=== PATIENT | male | born 1960 | race Caucasian/White ===

== ENCOUNTER 2020-07-17 08:05 | Day surgery (SDC) | payer MEDICARE, MEDICAID ==
[2020-07-17] MEDS ORDERED: Propofol 200 MG/20 ML SDV IV ONE (08:06)
[2020-07-17] MEDS ORDERED: Ondansetron 4 MG/2 ML SDV IVPUSH ONE (08:06)
[2020-07-17] MEDS ORDERED: Midazolam 1 MG/ML 2 ML SDV IV ONE (08:06)
[2020-07-17] MEDS ORDERED: fentaNYL 100 MCG/2 ML SDV IV ONE (08:06)
[2020-07-17] MEDS ORDERED: Ketorolac 30 MG/ML SDV IVPUSH ONE (08:06)
[2020-07-17] MEDS ORDERED: Sodium Chloride 0.9% 10 ML Syringe FLUSH PRN (08:15)
[2020-07-17] MEDS ORDERED: Lactated Ringers 1,000 ML IV SCH (08:15)
--- NOTE | 2020-07-17 10:25 | PCM.OPNOTE ---
- General Post-Op/Procedure Note Date of Surgery/Procedure: 07/17/20 Operative Procedure(s): excision of abd wall lipoma Findings: 8x6x1 cm lipoma Pre Op Diagnosis: abd wall lipoma Post-Op Diagnosis: Same Anesthesia Technique: Local (7 ml 1% lido with epi/0.5% buvipicaine), MAC Primary Surgeon: Nixon Alonso Anesthesia Provider: Gerardo Moser Pathology: 8x6x1 cm lipoma EBL in mLs: 1 Complications: None Condition: Good Free Text/Narrative:: see dictation
--- NOTE | 2020-07-17 13:35 | OR ---
DATE OF OPERATION: 07/17/2020 SURGEON: Nixon Alonso MD PROCEDURE PERFORMED: Excision of abdominal wall lipoma. PREOPERATIVE DIAGNOSIS: Abdominal wall mass/lipoma. POSTOPERATIVE DIAGNOSIS: Abdominal wall mass/lipoma. INDICATIONS FOR PROCEDURE: A 59-year-old white male, referred with a visible lump on the left upper quadrant of his abdominal wall. Subsequent workup revealed it to be a lipoma. Due to the size, which clinically measured approximately 7 cm in diameter, excisional biopsy was recommended. DESCRIPTION OF OPERATION: After an excellent IV sedation was administered, the patient was prepped and draped in usual sterile manner. 7 mL of 1:1 mixture of 1% lidocaine with epinephrine and 0.5% bupivacaine was used to infiltrate the planned incision site over the mass, as well as create a field block around the lipoma. An incision was made with a #15 scalpel blade. The lipoma itself was excised using careful blunt dissection. The specimen was passed off the field, it measured 8 x 6 x 1 cm in size. The area was irrigated. After ensuring excellent hemostasis, the wound was closed with a running subcu 3-0 Vicryl. Steri-Strips and dressing were applied. The patient tolerated the procedure well, was taken to Recovery in good condition. /[id number] /MODL
== END 2020-07-17 10:43 | disposition home or self-care (01) ==
LOC: FB.SDS 08:05
PROVIDERS: ATTEND Surgery
DX: D17.1 Benign lipomatous neoplasm of skin and subcutaneous tissue of trunk (principal); E11.9 Type 2 diabetes mellitus without complications; F41.1 Generalized anxiety disorder; I10 Essential (primary) hypertension; J45.909 Unspecified asthma, uncomplicated; Z79.899 Other long term (current) drug therapy; Z90.49 Acquired absence of other specified parts of digestive tract; Z79.84 Long term (current) use of oral hypoglycemic drugs; Z88.1 Allergy status to other antibiotic agents; Z88.8 Allergy status to other drugs, medicaments and biological substances
CPT/HCPCS: 00790; 22903; 82962; 88304; J1885; J2250; J2405; J2704; J3010; J7120

== ENCOUNTER 2020-11-11 11:10 | Emergency (ER) | payer MEDICARE, MEDICAID ==
[2020-11-11] MEDS ORDERED: Alum Hydroxide/Mag Hydroxide 30 ML, Lidocaine 2% 15 ML PO ONE ×2 (11:41)
[2020-11-11] MEDS ORDERED: Ondansetron 4 MG/2 ML SDV IVPUSH ONE (11:41)
[2020-11-11] MEDS ORDERED: Ketorolac 30 MG/ML SDV IVPUSH ONE (11:41)
[2020-11-11] MEDS ORDERED: Pantoprazole 40 MG Vial IVPUSH ONE (11:42)
[2020-11-11] MEDS ORDERED: Sodium Chloride 0.9% 1,000 ML IV SCH (11:45)
--- NOTE | 2020-11-11 12:05 | EDM.PDOC ---
ED HPI GENERAL MEDICAL PROBLEM - General Chief Complaint: Gastrointestinal Problem Stated Complaint: NAUS Time Seen by Provider: 11/11/20 11:20 Source of Information: Reports: Patient History Limitations: Reports: No Limitations - History of Present Illness INITIAL COMMENTS - FREE TEXT/NARRATIVE: c/o diarrhea pt states he has had 4-5 loose stools x 2w, had 2 last night and 3 since getting up at 7a says he has not been able to eat altho appears well hydrated no food or drink today went to [facility] and saw Charanjit Gonzales last week with c/o diarrhea, given cephalexin BID which he has been taking as well as a med BID for nausea last colonoscopy 1y ago, scheduled to see GI at [facility] at 1p today to schedule another colonoscopy lives alone, retired x 4-5y, had worked at [employer] no f/c/d, no cough/sob has had N and V on occasion, some N now has epigastric discomfort that gets better with Pepto-Bismol - Related Data Allergies Allergy/AdvReac Type Severity Reaction Status Date / Time azithromycin [From Zithromax] Allergy Respiratory Verified 11/11/20 11:34 Distress prednisone Allergy Anxiety Verified 11/11/20 11:34 Home Meds: Home Meds Albuterol [Ventolin HFA] 2 puff INH Q4H PRN 07/16/20 [History] Benztropine [Cogentin] 0.5 mg PO BID 07/16/20 [History] ClonazePAM [KlonoPIN] 2 mg PO BEDTIME 07/16/20 [History] EPINEPHrine [Epinephrine] 0.3 mg IM DAILY PRN 07/16/20 [History] Finasteride [Proscar] 5 mg PO DAILY 07/16/20 [History] Fluticasone Propionate [Flonase] 16 gm NS DAILY 07/16/20 [History] Fluticasone/Vilanterol [Breo Ellipta 100-25 MCG Inhalation Kit] 1 each IH DAILY 07/16/20 [History] Gabapentin [Neurontin] 400 mg PO BEDTIME 07/16/20 [History] Losartan [Cozaar] 50 mg PO DAILY 07/16/20 [History] Montelukast [Singulair] 10 mg PO BEDTIME 07/16/20 [History] Omeprazole Magnesium [Prilosec Otc] 40 mg PO DAILY 07/16/20 [History] Potassium Chloride [Klor-Con M20] 20 meq PO DAILY 07/16/20 [History] QUEtiapine [SEROquel] 50 mg PO ASDIRECTED 07/16/20 [History] QUEtiapine [SEROquel] 300 mg PO BEDTIME 07/16/20 [History] QUEtiapine [SEROquel] 400 mg PO BEDTIME 07/16/20 [History] Tamsulosin HCl [Flomax] 0.8 mg PO DAILY 07/16/20 [History] Temazepam [Restoril] 15 mg PO BEDTIME 07/16/20 [History] Vortioxetine Hydrobromide [Trintellix] 5 mg PO DAILY 07/16/20 [History] hydrOXYzine HCL [hydrOXYzine] 25 mg PO ASDIRECTED 07/16/20 [History] metFORMIN [Glucophage XR] 1,000 mg PO BIDMEALS 07/16/20 [History] traZODone 200 mg PO DAILY 07/16/20 [History] Ciprofloxacin HCl [Cipro] 500 mg PO BID 11/11/20 [History] Loperamide HCl [Anti-Diarrheal] 2 mg PO Q6H PRN #20 capsule 11/11/20 [Rx] Loperamide [Imodium] 4 mg PO QID PRN 11/11/20 [History] Magnesium Oxide 400 mg PO BID #42 tab 11/11/20 [Rx] Omeprazole 20 mg PO DAILY #14 capsule.dr 11/11/20 [Rx] Ondansetron [Ondansetron ODT] 4 mg PO Q4H PRN #10 tab.rapdis 11/11/20 [Rx] Simvastatin 60 mg PO BEDTIME 11/11/20 [History] dexAMETHasone [Dexamethasone] 4 mg PO DAILY #7 tablet 11/11/20 [Rx] metroNIDAZOLE 250 mg PO TID #15 tab 11/11/20 [Rx] Past Medical History HEENT History: Reports: Impaired Vision Other HEENT History: ASTIGMATISM, HYPERMETROPIA, PRESBYOPIA Cardiovascular History: Reports: High Cholesterol, Hypertension Respiratory History: Reports: Asthma Gastrointestinal History: Reports: GERD Other Gastrointestinal History: SPLENIC CYST Genitourinary History: Reports: Retention, Urinary Other Genitourinary History: LUTS, ENLARGED PROSTATE, CHRONIC PROSTATITIS Psychiatric History: Reports: Addiction, Anxiety, Depression, Schizophrenia Endocrine/Metabolic History: Reports: Diabetes, Type II, Obesity/BMI 30+ Hematologic History: Reports: Anemia - Past Surgical History GI Surgical History: Reports: Appendectomy, Cholecystectomy, Colonoscopy Male Surgical History: Reports: Other (See Below) Social & Family History - Family History Family Medical History: No Pertinent Family History - Caffeine Use Caffeine Use: Reports: None ED ROS GENERAL - Review of Systems Review Of Systems: See Below Constitutional: Reports: No Symptoms HEENT: Reports: No Symptoms Respiratory: Reports: No Symptoms Cardiovascular: Reports: No Symptoms Endocrine: Reports: No Symptoms GI/Abdominal: Reports: Abdominal Pain, Black Stool, Diarrhea, Nausea, Vomiting : Reports: No Symptoms Musculoskeletal: Reports: No Symptoms Skin: Reports: No Symptoms Neurological: Reports: No Symptoms Psychiatric: Reports: No Symptoms Hematologic/Lymphatic: Reports: No Symptoms Immunologic: Reports: No Symptoms ED EXAM, GI/ABD - Physical Exam Exam: See Below Exam Limited By: No Limitations General Appearance: Alert, WD/WN, No Apparent Distress Ears: Normal External Exam Nose: Normal Inspection, Normal Mucosa, No Blood Throat/Mouth: Normal Inspection, Normal Lips, Normal Teeth, Normal Gums, Normal Oropharynx, Normal Voice, No Airway Compromise Head: Atraumatic, Normocephalic Neck: Normal Inspection, Supple, Non-Tender, Full Range of Motion Respiratory/Chest: No Respiratory Distress, Lungs Clear, Normal Breath Sounds, N o Accessory Muscle Use, Chest Non-Tender Cardiovascular: Normal Peripheral Pulses, Regular Rate, Rhythm, No Edema, No Gallop, No Murmur, No Rub GI/Abdominal Exam: Normal Bowel Sounds, Soft, No Organomegaly, No Distention, Other (mild epigastric tender, BS x 4, NT elsewhere) Back Exam: Normal Inspection, Full Range of Motion. No: CVA Tenderness (R), CVA Tenderness (L) Extremities: Normal Inspection, Normal Range of Motion, Non-Tender, No Pedal Edema Neurological: Alert, Oriented, CN II-XII Intact, Normal Cognition, Normal Gait, No Motor/Sensory Deficits Psychiatric: Normal Affect, Normal Mood Skin Exam: Warm, Dry, Intact, Normal Color, No Rash Lymphatic: No Adenopathy Course - Vital Signs Last Recorded V/S: Last Vital Signs Temp 36.9 C 11/11/20 11:10 Pulse 81 11/11/20 11:10 Resp 18 11/11/20 11:10 BP 136/75 11/11/20 11:10 Pulse Ox 97 11/11/20 11:10 - Orders/Labs/Meds Orders: Active Orders 24 hr Category Date Time Status Communication Order [RC] ROUTINE Care 11/11/20 12:42 Active EKG Documentation Completion [RC] ASDIRECTED Care 11/11/20 11:43 Active OCCULT BLOOD DIAGNOSTIC [OP] Stat Lab 11/11/20 11:41 Ordered Sodium Chloride 0.9% [Normal Saline] 1,000 ml Med 11/11/20 11:45 Active IV ASDIRECTED EKG 12 Lead [EK] Routine Ther 11/11/20 11:43 Ordered Medication Orders Sodium Chloride (Normal Saline) 1,000 mls @ 999 mls/hr IV ASDIRECTED STAN Last Admin: 11/11/20 12:00 Dose: 999 mls/hr Documented by: DILSHAD Labs: Laboratory Tests 11/11/20 11/11/20 11/11/20 Range/Units 11:55 11:55 11:55 WBC 12.9 H (3.2-10.1) x10-3/uL RBC 4.45 (3.90-5.90) x10(6)uL Hgb 12.2 L (12.9-17.7) g/dL Hct 37.4 L (38.3-50.1) % MCV 83.9 (80.8-98.7) fL MCH 27.3 (27.0-33.3) pg MCHC 32.6 (28.7-35.3) g/dL RDW 13.3 (12.4-15.0) % Plt Count 301 (117-477) x10(3)uL MPV 8.7 (6.7-11.0) fL Add Manual Diff Yes Neutrophils % (Manual) 85 H (46-82) % Lymphocytes % (Manual) 9 L (13-37) % Monocytes % (Manual) 4 (4-12) % Eosinophils % (Manual) 2 (0-5) % Sodium 142 (135-145) mmol/L Potassium 3.8 (3.5-5.3) mmol/L Chloride 101 (100-110) mmol/L Carbon Dioxide 29 (21-32) mmol/L BUN 8 (7-18) mg/dL Creatinine 1.1 (0.70-1.30) mg/dL Est Cr Clr Drug Dosing 79.36 mL/min Estimated GFR (MDRD) > 60 (>60) BUN/Creatinine Ratio 7.3 L (9-20) Glucose 116 (80-116) mg/dL Calcium 9.5 (8.6-10.2) mg/dL Magnesium (1.8-2.5) mg/dL Total Bilirubin 0.3 (0.1-1.3) mg/dL AST 16 (5-25) IU/L ALT 34 (12-36) U/L Alkaline Phosphatase 111 (56-112) IU/L Troponin I (4.0-60.3) pg/mL C-Reactive Protein (0.5-0.9) mg/dL Total Protein 7.4 (6.0-8.0) g/dL Albumin 3.9 (3.5-5.2) g/dL Globulin 3.5 g/dL Albumin/Globulin Ratio 1.1 Lipase (73-393) U/L Urine Color Yellow (YELLOW) Urine Appearance Clear (CLEAR) Urine pH 5.0 (5.0-6.5) Ur Specific Sycam[place] 1.020 (1.010-1.025) Urine Protein Negative (NEGATIVE) mg/dL Urine Glucose (UA) Normal (NORMAL) mg/dL Urine Ketones Negative (NEGATIVE) mg/dL Urine Occult Blood Negative (NEGATIVE) Urine Nitrite Negative (NEGATIVE) Urine Bilirubin Negative (NEGATIVE) Urine Urobilinogen Normal (NEGATIVE) mg/dL Ur Leukocyte Esterase Negative (NEGATIVE) Urine WBC 0-5 (0-5) Ur Squamous Epith Cells Few H (NS,R,O) Urine Bacteria Rare H (NS) SARS-CoV-2 RNA (DUSTY) (NEGATIVE) 11/11/20 11/11/20 11/11/20 Range/Units 11:55 11:55 13:50 WBC (3.2-10.1) x10-3/uL RBC (3.90-5.90) x10(6)uL Hgb (12.9-17.7) g/dL Hct (38.3-50.1) % MCV (80.8-98.7) fL MCH (27.0-33.3) pg MCHC (28.7-35.3) g/dL RDW (12.4-15.0) % Plt Count (117-477) x10(3)uL MPV (6.7-11.0) fL Add Manual Diff Neutrophils % (Manual) (46-82) % Lymphocytes % (Manual) (13-37) % Monocytes % (Manual) (4-12) % Eosinophils % (Manual) (0-5) % Sodium (135-145) mmol/L Potassium (3.5-5.3) mmol/L Chloride (100-110) mmol/L Carbon Dioxide (21-32) mmol/L BUN (7-18) mg/dL Creatinine (0.70-1.30) mg/dL Est Cr Clr Drug Dosing mL/min Estimated GFR (MDRD) (>60) BUN/Creatinine Ratio (9-20) Glucose (80-116) mg/dL Calcium (8.6-10.2) mg/dL Magnesium 1.5 L (1.8-2.5) mg/dL Total Bilirubin (0.1-1.3) mg/dL AST (5-25) IU/L ALT (12-36) U/L Alkaline Phosphatase (56-112) IU/L Troponin I 6.6 (4.0-60.3) pg/mL C-Reactive Protein 1.8 H (0.5-0.9) mg/dL Total Protein (6.0-8.0) g/dL Albumin (3.5-5.2) g/dL Globulin g/dL Albumin/Globulin Ratio Lipase 34 L (73-393) U/L Urine Color (YELLOW) Urine Appearance (CLEAR) Urine pH (5.0-6.5) Ur Specific [place] (1.010-1.025) Urine Protein (NEGATIVE) mg/dL Urine Glucose (UA) (NORMAL) mg/dL Urine Ketones (NEGATIVE) mg/dL Urine Occult Blood (NEGATIVE) Urine Nitrite (NEGATIVE) Urine Bilirubin (NEGATIVE) Urine Urobilinogen (NEGATIVE) mg/dL Ur Leukocyte Esterase (NEGATIVE) Urine WBC (0-5) Ur Squamous Epith Cells (NS,R,O) Urine Bacteria (NS) SARS-CoV-2 RNA (DUSTY) Negative (NEGATIVE) Meds: Medications Generic Name Dose Route Start Last Admin Trade Name Freq PRN Reason Stop Dose Admin Sodium Chloride 1,000 mls @ 999 mls/hr 11/11/20 11:45 11/11/20 12:00 Normal Saline IV 999 mls/hr ASDIRECTED STAN Administration Discontinued Medications Generic Name Dose Route Start Last Admin Trade Name Khurram PRN Reason Stop Dose Admin Al Hydroxide/Mg Hydroxide 30 0 ml 11/11/20 11:41 11/11/20 12:36 ml/ Lidocaine HCl 15 ml PO 11/11/20 11:42 30 ml ONETIME ONE Administration Magnesium Sulfate 2 gm in 50 mls @ 50 mls/hr 11/11/20 14:45 11/11/20 15:04 Magnesium Sulfate In Water Premix IV 11/11/20 15:44 50 mls/hr ONETIME ONE Administration Iopamidol 100 ml 11/11/20 12:53 11/11/20 13:10 Isovue-370 (76%) IV 11/11/20 12:54 100 ml . DIRECTED ONE Administration Ketorolac Tromethamine 30 mg 11/11/20 11:41 11/11/20 12:45 Toradol IVPUSH 11/11/20 11:42 30 mg ONETIME ONE Administration Methylprednisolone Sodium Succinate 125 mg 11/11/20 15:30 11/11/20 15:37 Solu-Medrol IVPUSH 11/11/20 15:31 125 mg NOW ONE Administration Ondansetron HCl 4 mg 11/11/20 11:41 11/11/20 12:40 Zofran IVPUSH 11/11/20 11:42 4 mg ONETIME ONE Administration Pantoprazole Sodium 80 mg 11/11/20 11:42 11/11/20 12:49 Protonix Iv IVPUSH 11/11/20 11:43 80 mg ONETIME ONE Administration - Re-Assessments/Exams Free Text/Narrative Re-Assessment/Exam: 11/11/20 16:27 CT c/w Crohn's pt apparently had apt at 1p with Dr Odom, d/w Dr Odom who requested [facility] to do the colonoscopy in order to coordinate ongoing GI care with them Dr Odom will notify Francisoc Singh is not in the office this afternoon, I spoke with Erica Jaeger re need for ongoing care and she said she would pass along the message to Francisco as well unable to obtain stool specimen in ED, pt given collection kits for fecal WBC, C diff, Hemoccult, O&P, stool cultures pt to see Francisco in 2d pt felt much better at time of d/c Departure - Departure Time of Disposition: 16:00 Disposition: Home, Self-Care 01 Condition: Good Clinical Impression: Diarrhea, Inflammatory bowel disease, Hypomagnesemia, Elevated WBC count, Left- shifted white blood cells, Elevated C-reactive protein (CRP) - Discharge Information *PRESCRIPTION DRUG MONITORING PROGRAM REVIEWED*: Not Applicable *COPY OF PRESCRIPTION DRUG MONITORING REPORT IN PATIENT JACQUE: Not Applicable Prescriptions: Loperamide HCl [Anti-Diarrheal] 2 mg PO Q6H PRN #20 capsule PRN Reason: Diarrhea dexAMETHasone [Dexamethasone] 4 mg PO DAILY #7 tablet Magnesium Oxide 400 mg PO BID #42 tab metroNIDAZOLE 250 mg PO TID #15 tab Omeprazole 20 mg PO DAILY #14 capsule. Ondansetron [Ondansetron ODT] 4 mg PO Q4H PRN #10 tab.rapdis PRN Reason: Nausea Instructions: Diarrhea, Adult, [id number], Crohn's Disease Forms: ED Department Discharge Additional Instructions: See Francisco Gonzales in 2 days. 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 To replace magnesium, take magnesium oxide 400 mg 1 tab 2 times a day for 3 weeks. For possible infection, continue the ciprofloxacin 500 mg 1 tab 2 times a day for 5 days. For possible infection, also take metronidazole 250 mg 1 tab 3 times a day for 5 days. For diarrhea, continue loperamide 2 mg 1 tab up to 4 times a day but not more than 4 tabs in 24 hours. For inflammation, take dexamethasone 4 mg 1 tab daily for 7 days. For nausea, take ondansetron ODT 4 mg 1 tab every 4-6 hours as needed. To decrease acid production, take omeprazole 20 mg 1 tab daily for 2 weeks. Bring stool specimens to the hospital for additional stool tests. Sepsis Event Note (ED) - Focused Exam Vital Signs: Vital Signs Temp Pulse Resp BP Pulse Ox 11/11/20 11:10 36.9 C 81 18 136/75 97 - My Orders Last 24 Hours: My Active Orders 11/11/20 11:41 OCCULT BLOOD DIAGNOSTIC [OP] Stat 11/11/20 11:43 EKG Documentation Completion [RC] ASDIRECTED EKG 12 Lead [EK] Routine 11/11/20 11:45 Sodium Chloride 0.9% [Normal Saline] 1,000 ml IV ASDIRECTED 11/11/20 12:42 Communication Order [RC] ROUTINE - Assessment/Plan Last 24 Hours: My Active Orders 11/11/20 11:41 OCCULT BLOOD DIAGNOSTIC [OP] Stat 11/11/20 11:43 EKG Documentation Completion [RC] ASDIRECTED EKG 12 Lead [EK] Routine 11/11/20 11:45 Sodium Chloride 0.9% [Normal Saline] 1,000 ml IV ASDIRECTED 11/11/20 12:42 Communication Order [RC] ROUTINE
[2020-11-11] MEDS ORDERED: Iopamidol 755 Mg/ML 100 ML Bottle IV ONE (12:53)
--- NOTE | 2020-11-11 14:30 | CT ---
INDICATION: Diarrhea x2 weeks with increased WBC/CRP - question colitis. CT CHEST, ABDOMEN AND PELVIS WITH CONTRAST: Spiral 3.75 mm axial sections were obtained through the chest, abdomen and pelvis with 100 cc Isovue-370 at 2 cc per second with sagittal and coronal reconstructions 11/09/[address] compared with a CT of the abdomen and pelvis dated 07/03/20. Total exam DLP was 2503.00 mGy-cm. CT CHEST: Examination of the chest was obtained - no comparisons. No mediastinal mass was identified. A mild degree of mediastinal lymphadenopathy is nonspecific. Very minimal atherosclerotic change is suggested in the arch of the aorta. The heart is normal in size. No definite pericardial effusion was seen. Bilateral small pleural effusions are noted. There is some minimal patchy ground-glass infiltrate in the upper lobes, etiology indeterminate - could represent early viral pneumonia or possibly some fibrotic change. Other etiologies are possible. However, no consolidating pneumonia was identified. No nodular masses were seen. IMPRESSION: Patchy ground-glass infiltration is noted in the upper lobes and also to a mild degree in the middle lobe and associated with bilateral small pleural effusions, right larger than left. Etiology is indeterminate, but could be on the basis of early infectious process such as viral pneumonia, although other etiologies could not be excluded. CT ABDOMEN AND PELVIS: Examination of the abdomen and pelvis was obtained by CT as noted above and compared with 07/03/20 as mentioned earlier. The liver appeared normal. Clips compatible with cholecystectomy are again noted. Common bile duct was normal in caliber. The right adrenal gland was unremarkable. The left adrenal gland was somewhat prominent, but is unchanged. The kidneys appeared essentially normal with no obstructive uropathy. A splenic cyst appears to be a simple cyst and stable, mostly exophytic off the lower pole of the spleen which was otherwise unremarkable. The pancreas appears normal and essentially unchanged from the previous study. There appears to have been surgical removal of a lipoma seen in the left upper middle abdomen on the previous study anterolaterally. No definite retroperitoneal mass was seen. Retroperitoneal lymphadenopathy is mild and nonspecific. There are some areas of ground-glass density scattered about the right abdomen which may represent previous infection or previous surgery. The appendix is absent compatible with history of its removal. There is an appearance of thickening of the bowel well in multiple loops of small bowel, as well as in portions of the colon including the sigmoid colon. The appearance could be on the basis of gastroenteritis or other abnormality of the bowel including infectious organism involvement. No evidence of free air or bowel obstruction was identified. IMPRESSION: 1. Areas of thickened bowel wall and various loops of bowel raise question of Crohn's disease, although other etiology such as infectious small bowel changes and colitis would be considerations - correlate clinically. 2. Post cholecystectomy. 3. Post appendectomy. 4. Stable simple cyst lower spleen. 5. Degenerative changes and disk disease L5-S1 as previously. 6. Interval surgical removal of a lipoma in the right anterolateral upper abdomen. 7. Areas of somewhat ground-glass change in the intraperitoneal fat on the right which are unchanged from the previous examination and may be residual of previous infection or surgical change. MTDD
[2020-11-11] MEDS ORDERED: Magnesium Sulfate/Water 2 GM/50 ML BAG IV ONE (14:45)
[2020-11-11] MEDS ORDERED: methylPREDNISolone Sodium Succinate 125 MG/2 ML SDV IVPUSH ONE (15:30)
== END 2020-11-11 16:33 | disposition home or self-care (01) ==
LOC: FB.ED 11:10
DX: K52.9 Noninfective gastroenteritis and colitis, unspecified (principal); E83.42 Hypomagnesemia; D72.829 Elevated white blood cell count, unspecified; R79.89 Other specified abnormal findings of blood chemistry; E78.00 Pure hypercholesterolemia, unspecified; I10 Essential (primary) hypertension; J45.909 Unspecified asthma, uncomplicated; K21.9 Gastro-esophageal reflux disease without esophagitis; F41.9 Anxiety disorder, unspecified; F32.9 Major depressive disorder, single episode, unspecified; F20.9 Schizophrenia, unspecified; N40.0 Benign prostatic hyperplasia without lower urinary tract symptoms; E11.9 Type 2 diabetes mellitus without complications; E66.9 Obesity, unspecified; Z68.29 Body mass index [BMI] 29.0-29.9, adult; Z88.1 Allergy status to other antibiotic agents; Z88.8 Allergy status to other drugs, medicaments and biological substances; Z79.899 Other long term (current) drug therapy; Z20.828 Contact with and (suspected) exposure to other viral communicable diseases
CPT/HCPCS: 36415; 71260; 74177; 80053; 81001; 83690; 83735; 84484; 85025; 86140; 93005; 96365; 96375; 99285; A9270; C9113; J1885; J2405; J2930; J3475; J7030; Q9967; U0002

== ENCOUNTER 2022-01-30 11:33 | Emergency (ER) | payer MEDICARE, MEDICAID ==
[2022-01-30] MEDS ORDERED: Pantoprazole 40 MG Vial IVPUSH ONE (12:04)
[2022-01-30] MEDS ORDERED: Ondansetron 4 MG/2 ML SDV IVPUSH ONE (12:07)
[2022-01-30] MEDS ORDERED: Sodium Chloride 0.9% 1,000 ML IV SCH (12:15)
[2022-01-30] MEDS ORDERED: Magnesium Oxide 400 MG Tab PO ONE (14:01)
== END 2022-01-30 14:40 | disposition home or self-care (01) ==
LOC: FB.ED 11:33
DX: R53.1 Weakness (principal); R19.7 Diarrhea, unspecified; E86.0 Dehydration; E83.42 Hypomagnesemia; E78.00 Pure hypercholesterolemia, unspecified; I10 Essential (primary) hypertension; E11.9 Type 2 diabetes mellitus without complications; E66.9 Obesity, unspecified; Z68.30 Body mass index [BMI] 30.0-30.9, adult; Z88.1 Allergy status to other antibiotic agents; Z88.8 Allergy status to other drugs, medicaments and biological substances; Z79.899 Other long term (current) drug therapy
CPT/HCPCS: 36415; 80053; 81001; 83735; 83880; 85025; 93005; 96374; 96375; 99284-25; A9270-GY; C9113; J2405; J7030